=== PATIENT | female | born 1975 | race Caucasian/White ===

== ENCOUNTER 2018-12-25 14:04 | Emergency (ER) | payer BC, OTHER, SELFPAY ==
[2018-12-25 14:50] LABS: Clarity TURBID (Clear); Glucose, Urine (Dipstick) Negative (Negative); Protein, Urine (Dipstick) 100 mg/dL (Neg-Trace); Specific Gravity, Urine 1.021 (1.002-1.036); pH, Urine 5.5 (5.0-9.0)
[2018-12-25 14:52] LABS: Hyaline Casts/LPF 4-6 HYALINE CAST LPF (0-3 Hyaline); Pathc Cast-AUWi Flag 1.79 (0-2.49); Pregnancy Test - Urine (BHCG) Negative (Negative); Pregu Control Background? CLEAR/WHITE (CLR/WHITE); Pregu Control Bar Appear? YES (CONTROL BAR); RBC/HPF GREATER THAN 50-TNTC HPF (0-3); Specific Gravity 1.021 (1.002-1.036); Squamous Epithelial 0-3 HPF (0-3)
[2018-12-25 14:58] LABS: Bilirubin Unable to Interpret (Negative); Nitrite Unable to Interpret (Negative)
[2018-12-25 14:59] LABS: Blood, Urine Large (Negative); Leukocyte Large (Negative)
[2018-12-25 15:01] LABS: Bacteria/HPF 1+ HPF (None Seen); Crystals/HPF None Seen HPF (Negative)
[2018-12-25 15:19] LABS: #Basophils 0.1 thou/uL (0.0-0.2); #Eosinphils 0.2 thou/uL (0.0-0.7); #Lymphocytes 2.9 thou/uL (1.20-3.40); #Monocytes 0.8 thou/uL (0.11-0.59); #Neutrophils 11.6 thou/uL (1.40-6.50); %Basophils 0.5 % (0.0-1.0); %Eosinophils 1.1 % (0.0-10.0); %Lymphocytes 18.5 % (21.0-51.0); %Monocytes 4.9 % (0.0-10.0); Hemoglobin 13.9 g/dL (12.0-16.0); Mean Corpuscular HGB CONC 34.4 g/dL (32.0-36.0); Mean Corpuscular Hemoglobin 31.4 pg (27.0-31.0); Mean Corpuscular Volume 91.4 fL (78.0-98.0); Mean Platelet Volume 8.2 fL (7.4-10.4); Platelet Count 223 thou/uL (130-400); RBC Distribution Width 11.6 % (11.5-14.5); Red Blood Cell (RBC) Count 4.42 mill/uL (4.20-5.40); White Blood Cell (WBC) Count 15.4 thou/uL (4.8-10.8)
[2018-12-25 15:32] LABS: ALT (SGPT) 11 U/L (8-55); AST (SGOT) 14 U/L (5-34); Albumin 4.1 g/dL (3.5-5.0); Alkaline Phosphatase 87 U/L (40-150); Anion Gap 11 mmol/L (10-20); BUN (Urea Nitrogen) 11 mg/dL (7.0-18.7); Bilirubin, Total 0.2 mg/dL (0.2-1.2); Calc. Creatinine Clearance 0 mL/min (70-130); Calcium 9.8 mg/dL (7.8-10.44); Carbon Dioxide 28 mmol/L (22-29); Chloride 102 mmol/L (98-107); Estimated GFR-MDRD 73; Glucose 84 mg/dL (70-105); Potassium 3.9 mmol/L (3.5-5.1); Protein, Total 7.1 g/dL (6.0-8.3); Sodium 137 mmol/L (136-145)
--- NOTE | 2018-12-25 16:23 | CT ---
CT Stone Protocol 12/25/2018 3:48 PM HISTORY: Right flank pain COMPARISON: Contrasted CT abdomen and pelvis on 12/14/2016 Technique: Multiple contiguous axial images were obtained and a CT of the abdomen and pelvis without IV contrast . Coronal reformats were performed. FINDINGS: This examination is limited for the evaluation of solid organs and vascular structures due to the lac k of intravenous contrast. Lower Chest: within normal limits. Abdomen: Liver: within normal limits. Gallbladder: Decompressed but no obvious abnormality is seen. Pancreas: within normal limits. Spleen: within normal limits. Adrenals: within normal limits. Kidneys: Subcentimeter hypodense lesion is seen in the anterior aspect midportion right kidney which is too small to characterize. Kidneys otherwise demonstrate grossly normal nonenhanced CT appearance bilaterally. No renal calculi are seen, and there is no hydronephrosis. No ureteral calcul us is seen. Pelvis: Reproductive Organs: There is evidence of hysterectomy. Ureters: No ureteral calculi or hydroureter is present. Bladder: Incompletely distended but otherwise grossly normal in appearance. Bowel: Normal caliber.The appendix is normal in caliber. Lymph Nodes: No enlarged lymph nodes. Peritoneum: No free fluid, free air, or fluid collection. Vessels: The aorta is normal in caliber.. Retroperitoneum: within normal limits. Abdominal Wall: within normal limits. Bones: within normal limits. IMPRESSION: 1. No renal or ureteral calculi are seen bilaterally. 2. Subcentimeter too small to characterize hypodense lesion right kidney. 3. No CT evidence of appendicitis.
== END 2018-12-25 14:48 | disposition home or self-care (01) ==
LOC: ERS 14:04
DX: N12 Tubulo-interstitial nephritis, not specified as acute or chronic (principal); I10 Essential (primary) hypertension; F90.9 Attention-deficit hyperactivity disorder, unspecified type; F17.210 Nicotine dependence, cigarettes, uncomplicated; Z79.899 Other long term (current) drug therapy
CPT/HCPCS: 36415; 74176; 80053; 81003; 81015; 81025; 85025; 87077; 87086; 87186

== ENCOUNTER 2023-05-10 18:40 | Inpatient (IN) | payer SELFPAY ==
[~2023-05-10 18:40] MED LIST: Iopamidol-370 76% 500 ML MDV (1 ML CHARGE) ONE
[2023-05-10 19:01] LABS: #Basophils 0.1 thou/uL (0.0-0.2); #Monocytes 0.8 thou/uL (0.11-0.59); #Neutrophils 14.7 thou/uL (1.40-6.50); %Basophils 0.3 % (0.0-1.0); %Eosinophils 0.2 % (0.0-10.0); %Lymphocytes 10.6 % (21.0-51.0); %Monocytes 4.4 % (0.0-10.0); Hematocrit 42.3 % (36.0-47.0); Hemoglobin 14.4 g/dL (12.0-16.0); Mean Corpuscular Hemoglobin 29.9 pg (27.0-31.0); Mean Corpuscular Volume 87.9 fl (78.0-98.0); Mean Platelet Volume 10.2 fL (7.4-10.4); Platelet Count 272 10x3/uL (130-400); RBC Distribution Width 13.2 % (11.5-14.5); Red Blood Cell (RBC) Count 4.81 mill/uL (4.20-5.40); White Blood Cell (WBC) Count 17.5 10x3/uL (4.8-10.8)
[2023-05-10] MEDS ORDERED: Aspirin Chewable 81 MG TAB ONE (19:02)
[2023-05-10 19:09] LABS: BHCG - Serum Negative (NEGATIVE); Pregs Control Background? CLEAR/WHITE (CLR/WHITE); Pregs Control Bar Appear? YES (CONTROL BAR)
[2023-05-10 19:26] LABS: ALT (SGPT) 11 U/L (8-55); AST (SGOT) 22 U/L (5-34); Albumin 4.4 g/dL (3.5-5.0); Alkaline Phosphatase 89 U/L (40-110); Anion Gap 18 mmol/L (10-20); BUN (Urea Nitrogen) 9 mg/dL (7.0-18.7); Bilirubin, Total 0.7 mg/dL (0.2-1.2); Calc. Creatinine Clearance 0 mL/min (70-130); Calcium 9.9 mg/dL (7.8-10.44); Carbon Dioxide 24 mmol/L (22-29); Chloride 95 mmol/L (98-107); Estimated GFR 70; Globulin 3.9 g/dL (2.4-3.5); Glucose 130 mg/dL (70-105); Potassium 3.9 mmol/L (3.5-5.1); Protein, Total 8.3 g/dL (6.0-8.3); Sodium 133 mmol/L (136-145); Troponin I Less than 0.010 ng/mL (< 0.028)
[2023-05-10 19:40] LABS: Bacteria/HPF 2+ HPF (None Seen); Bilirubin Negative (Negative); Blood, Urine 2+ (Negative); CAUTI Indications for Culture Fever or rigors; Clarity Clear (Clear); Glucose, Urine (Dipstick) Normal (Negative); Ketone, Urine Trace mg/dL (Negative); Leukocyte Negative Leu/uL (Negative); Mucous/LPF Rare LPF (<2+); Nitrite Negative (Negative); Protein, Urine (Dipstick) 50 mg/dL (Neg-Trace); RBC/HPF 21-50 HPF (0-3); Specific Gravity, Urine 1.035 (1.002-1.036)
[2023-05-10 19:42] LABS: SARS-CoV-2 NAA Rapid Test Not Detected (NotDetected)
[2023-05-10 19:43] LABS: Urine Culture Reflex No No
[2023-05-10] MEDS ORDERED: cefTRIAXone (ROCEPHIN) 1 GM VIAL ONE (19:50)
[2023-05-10] MEDS ORDERED: Morphine 4 MG/ML VIAL ONE (20:03)
[2023-05-10] MEDS ORDERED: Ondansetron PF 4 MG/2 ML Vial ONE (20:03)
[2023-05-11] MEDS ORDERED: Acetaminophen 325 MG TAB PO PRN (02:15)
[2023-05-11] MEDS ORDERED: Ondansetron PF 4 MG/2 ML Vial IVP PRN (02:15)
[2023-05-11] MEDS ORDERED: Ondansetron ODT 4 MG TAB SL PRN (02:15)
[2023-05-11 02:30] VITALS: BMI 29.5
[2023-05-11] MEDS: Sodium Chloride 0.9% 1,000 ML IV SCH ×3 (02:58→23:16)
[2023-05-11] MEDS ORDERED: Senokot S 8.6-50 MG TAB PO PRN (06:32)
[2023-05-11] MEDS ORDERED: Zolpidem Tartrate 5 MG TAB PO PRN (06:32)
[2023-05-11 07:10] LABS: #Monocytes 1.2 thou/uL (0.11-0.59); %Basophils 0.2 % (0.0-1.0); %Eosinophils 0.1 % (0.0-10.0); %Lymphocytes 7.1 % (21.0-51.0); %Monocytes 7.1 % (0.0-10.0); %Neutrophils 84.4 % (42.0-75.0); Hematocrit 38.2 % (36.0-47.0); Hemoglobin 12.9 g/dL (12.0-16.0); Mean Corpuscular HGB CONC 33.8 g/dL (32.0-36.0); Mean Corpuscular Hemoglobin 29.7 pg (27.0-31.0); Mean Corpuscular Volume 87.8 fl (78.0-98.0); Mean Platelet Volume 10.1 fL (7.4-10.4); Platelet Count 211 10x3/uL (130-400); RBC Distribution Width 13.4 % (11.5-14.5); Red Blood Cell (RBC) Count 4.35 mill/uL (4.20-5.40); White Blood Cell (WBC) Count 16.6 10x3/uL (4.8-10.8)
[2023-05-11] MEDS: Lisinopril/Hydrochlorothiazide 20 mg/12.5 mg Tablet PO SCH (08:37)
[2023-05-11] MEDS: Famotidine 20 MG TAB PO SCH ×2 (08:37→20:57)
[2023-05-11] MEDS: cefTRIAXone\\ROCEPHIN 2 GM in Sodium Chloride 0.9% 100 ML IVPB SCH (08:37)
[2023-05-11] MEDS: AMOXicillin 250 MG CAP PO SCH ×3 (08:40→20:57)
[2023-05-11] MEDS: Lidocaine Viscous Sol 2% 15 ml UD Cup SSW SCH ×5 (08:40→21:00)
[2023-05-11] MEDS: HYDROcodone/Acetaminophen 5/325 mg Tablet PO PRN (12:04)
[2023-05-12] MEDS: Sodium Chloride 0.9% 1,000 ML IV SCH ×2 (00:10→03:30)
[2023-05-12] MEDS: HYDROcodone/Acetaminophen 5/325 mg Tablet PO PRN (03:28)
[2023-05-12 06:38] LABS: #Eosinphils 0.1 thou/uL (0.0-0.7); #Monocytes 1.2 thou/uL (0.11-0.59); #Neutrophils 10.5 thou/uL (1.40-6.50); %Basophils 0.3 % (0.0-1.0); %Eosinophils 0.7 % (0.0-10.0); %Lymphocytes 13.6 % (21.0-51.0); %Monocytes 8.4 % (0.0-10.0); %Neutrophils 76.5 % (42.0-75.0); Hematocrit 36.5 % (36.0-47.0); Hemoglobin 12.1 g/dL (12.0-16.0); Mean Corpuscular HGB CONC 33.2 g/dL (32.0-36.0); Mean Corpuscular Hemoglobin 29.7 pg (27.0-31.0); Mean Corpuscular Volume 89.7 fl (78.0-98.0); Mean Platelet Volume 10.8 fL (7.4-10.4); Platelet Count 224 10x3/uL (130-400); RBC Distribution Width 13.4 % (11.5-14.5); Red Blood Cell (RBC) Count 4.07 mill/uL (4.20-5.40); White Blood Cell (WBC) Count 13.7 10x3/uL (4.8-10.8)
[2023-05-12 07:03] LABS: Anion Gap 12 mmol/L (10-20); BUN (Urea Nitrogen) 6 mg/dL (7.0-18.7); Calc. Creatinine Clearance 141 mL/min (70-130); Calcium 9.2 mg/dL (7.8-10.44); Carbon Dioxide 27 mmol/L (22-29); Chloride 101 mmol/L (98-107); Estimated GFR 108; Glucose 101 mg/dL (70-105); Potassium 3.3 mmol/L (3.5-5.1); Sodium 137 mmol/L (136-145)
[2023-05-12] MEDS: cefTRIAXone\\ROCEPHIN 2 GM in Sodium Chloride 0.9% 100 ML IVPB SCH (08:31)
[2023-05-12] MEDS: Famotidine 20 MG TAB PO SCH (08:32)
[2023-05-12] MEDS: AMOXicillin 250 MG CAP PO SCH (08:32)
[2023-05-12] MEDS: Lisinopril/Hydrochlorothiazide 20 mg/12.5 mg Tablet PO SCH (08:32)
[2023-05-12] MEDS: Lidocaine Viscous Sol 2% 15 ml UD Cup SSW SCH (08:33)
[2023-05-12 10:01] VITALS: BP 150/88; TEMP 97.7
== END 2023-05-12 10:00 | disposition home or self-care (01) | DRG 690 ==
LOC: ERS 18:40 → T4-A 05-11 01:10 → OBSVTOIN 05-11 15:49
PROVIDERS: ADMIT Specialist; ATTEND Specialist
DX: N12 Tubulo-interstitial nephritis, not specified as acute or chronic (principal); I10 Essential (primary) hypertension; Z90.710 Acquired absence of both cervix and uterus; Z87.891 Personal history of nicotine dependence; F90.9 Attention-deficit hyperactivity disorder, unspecified type
CPT/HCPCS: 36415; 71045; 74177; 80048; 80053; 81001; 83605; 84484; 84703; 85025; 87081; 87430; 93005; 96361; 96365; 96375; 96376; G0378; J0696; J2270; J2405; J3490; J7050; Q9967